=== PATIENT | female | born 1975 | race Caucasian/White ===

== ENCOUNTER 2021-04-04 18:19 | Emergency (ER) | payer MEDICAID ==
[~2021-04-04] VITALS: Ht 165.1 cm; Wt 61.2 kg
[2021-04-04 18:31] VITALS: BP_SYST 108
--- NOTE | 2021-04-04 19:02 | NUR ---
Patient to ER bed 05 to gown for evaluation. Side rails up.
--- NOTE | 2021-04-04 19:29 | NUR ---
[facility] Use of asceptic technique. Opsite placed over site. Blood return noted. Blood for lab drawn from site. Flushed with 10 cc of normal saline. No evidence of infiltration noted. Patient tolerated well.
--- NOTE | 2021-04-04 19:30 | NUR ---
# 22 gauge angiocath placed to right wrist. Use of asceptic technique. Opsite placed over site. Blood return noted. Blood for lab drawn from site. Flushed with 10 cc of normal saline. No evidence of infiltration noted. Patient tolerated well.
[2021-04-04 19:36] LABS: BILIRUBIN,URINE 1+ (NEGATIVE); BLOOD, URINE NEGATIVE (NEGATIVE); CLARITY/URINE CLOUDY (CLEAR); COLOR,URINE YELLOW (YELLOW); GLUCOSE,URINE NEGATIVE (NEGATIVE); KETONES,URINE TRACE (NEGATIVE); LEUKOCYTE ESTERASE ,URINE TRACE (NEGATIVE); NITRITE, URINE NEGATIVE (NEGATIVE); PROTEIN URINE 1+ (NEGATIVE); UROBILINOGEN,URINE 0.2 (0.2-1.0)
--- NOTE | 2021-04-04 19:37 | NUR ---
Pt awake, a/o x 3. Pt c/o abdominal pain RLQ 10/27, pt states she has been having abdominal pain since Sunday. Pt denies any n/v or other symptoms. Pt states she has been taking Ibuprofen since Sunday for the pain. Pt states the Ibuprofen has been helping for pain. VS, WNL.
[2021-04-04 19:41] LABS: BASOPHILS % (AUTO) 0.4 % (0.0-2.0); EOSINOPHILS # (AUTO) 0.2 K/uL (0.0-0.4); EOSINOPHILS % (AUTO) 1.5 % (0.0-4.0); HEMATOCRIT 33.2 % (36-48); HEMOGLOBIN 10.9 g/dL (12.0-16.0); LYMPHOCYTES # (AUTO) 1.9 K/uL (1.0-5.5); LYMPHOCYTES % (AUTO) 14.3 % (20.5-51.5); MEAN CORPUSCULAR HEMOGLOBIN 31 pg (27-31); MEAN CORPUSCULAR HGB CONC 33 % (32-36); MEAN CORPUSCULAR VOLUME 95 fL (79.0-98.0); MONOCYTES # (AUTO) 1.1 K/uL (0.0-1.0); MONOCYTES % (AUTO) 8.2 % (1.7-9.3); NEUTROPHILS # (AUTO) 10.2 K/uL (1.8-7.7); NEUTROPHILS % (AUTO) 75.6 % (40.0-70.0); PLATELET COUNT (AUTO) 304 K/uL (130-430); RED BLOOD CELL COUNT(AUTO) 3.52 MIL/uL (4.2-6.2); RED CELL DISTRIBUTION WIDTH 12.9 % (9.0-15.0); WHITE BLOOD COUNT (AUTO) 13.5 K/uL (4.8-10.8)
[2021-04-04 19:55] LABS: CALCIUM 8.6 mg/dL (8.4-11.0); CREATININE 0.75 mg/dL (0.55-1.30); POTASSIUM 3.8 mmol/L (3.5-5.1)
[2021-04-04 20:01] LABS: ALBUMIN 3.1 g/dL (3.4-4.8); TOTAL BILIRUBIN 0.2 mg/dL (0.0-1.0)
--- NOTE | 2021-04-04 20:21 | NUR ---
Dr. Langley at the bedside evaluating pt.
[2021-04-04 20:28] LABS: BACTERIA,URINE FEW /HPF (None Seen); RBC,URINE 0-3 /HPF (0-3)
[2021-04-04 20:29] LABS: MUCUS,URINE 3+ /LPF (None Seen)
[2021-04-04 21:07] LABS: BARBITURATE, URINE NEGATIVE (NEG <=200)
[2021-04-04 21:08] LABS: BENZODIAZEPINE, URINE NEGATIVE (NEG <=150); CANNABINOID, URINE POSITIVE (NEG <=50); COCAINE, URINE NEGATIVE (NEG <=150); METHAMPHETAMINES SCREEN,URINE POSITIVE (NEG <=500); OPIATE, URINE POSITIVE (NEG <=100); PHENCYCLIDINE SCREEN,URINE NEGATIVE (NEG <=25); UR TRICYCLIC ANTIDEPRESSANTS NEGATIVE (NEG <=300); URINE AMPHETAMINE POSITIVE (NEG <=500); URINE METHADONE NEGATIVE (NEG <=200); URINE OXYCODONE SCREEN NEGATIVE (NEG <=100); URINE PROPOXYPHENE SCREEN NEGATIVE (NEG <=300)
--- NOTE | 2021-04-04 21:55 | NUR ---
Pt to renal US via WC with tech.
--- NOTE | 2021-04-04 22:19 | NUR ---
Pt back to room 5, settled back to [facility].
[2021-04-04 22:20] VITALS: BP_SYST 115
[2021-04-05] MEDS ORDERED: DOCU-144 PO ×3 (00:10→00:17)
[2021-04-05] MEDS ORDERED: POLY17PO4 PO ×3 (00:10→00:17)
--- NOTE | 2021-04-05 00:30 | NUR ---
Patient given written and verbal discharge instructions and verbalizes understanding. ER MD discussed with patient the results and treatment provided. Patient in stable condition. ID arm band removed. IV catheter removed intact and dressing applied, no active bleeding. Rx given. Patient educated on pain management and to follow up with PMD. Pain Scale 2/10. Opportunity for questions provided and answered. Medication side effect fact sheet provided.
== END 2021-04-05 00:30 | disposition home or self-care (01) ==
LOC: SED 18:19
DX: K59.00 Constipation, unspecified (principal); F12.90 Cannabis use, unspecified, uncomplicated; Z79.899 Other long term (current) drug therapy
CPT/HCPCS: 36415; 74018; 76830-TC; 76857; 80053; 80307; 81000; 85025; 87086; 99285

== ENCOUNTER 2021-04-12 04:46 | Inpatient (IN) | payer MEDICAID, SELFPAY ==
[~2021-04-12] VITALS: Ht 165.1 cm; Wt 68.5 kg
[~2021-04-12 04:46] MED LIST: DOCU-144 PO; POLY17PO4 PO
[2021-04-12 04:55] VITALS: BP_SYST 131
--- NOTE | 2021-04-12 04:55 | NUR ---
Placed in room 6 . Placed on quality assurance monitor chassis, blood pressure machine and pulse oximeter. To gown for exam. Side rails up. Report given to Gertrude WHITEHEAD.
--- NOTE | 2021-04-12 04:56 | NUR ---
Came in ER ambulatory from home this 45 year old female, aaox4, breathing spontaneously at room air, not in distress noted. With chief complaints of SOB, fever/ chills, cough since last, history of chronic constipation, ovarian cyst, No known other medical history. vital signs stable
--- NOTE | 2021-04-12 05:13 | NUR ---
Seen and examined by Dr. Dawson, rectal exsamination done, occult blood positive
[2021-04-12] MEDS ORDERED: ONDANSETRON HCL 4 MG/2 ML VIAL IVP ONE (05:15)
[2021-04-12] MEDS ORDERED: KETOROLAC TROMETHAMINE 30 MG VIAL IVP ONE (05:15)
[2021-04-12] MEDS ORDERED: NACL 0.9% 1,000 ML IV ONE (05:15)
--- NOTE | 2021-04-12 05:20 | NUR ---
# 20 gauge angiocath placed to left forearm. Use of asceptic technique. Opsite placed over site. Blood return noted. Blood for lab drawn from site. Flushed with 10 cc of normal saline. No evidence of infiltration noted. Patient tolerated well.
--- NOTE | 2021-04-12 05:37 | NUR ---
Medications given as ordered, health teaching provided and verbalized understanding
[2021-04-12 05:46] LABS: BASOPHILS % (AUTO) 0.2 % (0.0-2.0); EOSINOPHILS # (AUTO) 0.2 K/uL (0.0-0.4); EOSINOPHILS % (AUTO) 0.8 % (0.0-4.0); HEMATOCRIT 34.3 % (36-48); HEMOGLOBIN 11.4 g/dL (12.0-16.0); LYMPHOCYTES # (AUTO) 1.5 K/uL (1.0-5.5); LYMPHOCYTES % (AUTO) 6.1 % (20.5-51.5); MEAN CORPUSCULAR HEMOGLOBIN 31 pg (27-31); MEAN CORPUSCULAR HGB CONC 33 % (32-36); MEAN CORPUSCULAR VOLUME 92 fL (79.0-98.0); MONOCYTES # (AUTO) 1.3 K/uL (0.0-1.0); MONOCYTES % (AUTO) 5.5 % (1.7-9.3); NEUTROPHILS # (AUTO) 21.3 K/uL (1.8-7.7); NEUTROPHILS % (AUTO) 87.4 % (40.0-70.0); PLATELET COUNT (AUTO) 477 K/uL (130-430); RED BLOOD CELL COUNT(AUTO) 3.73 MIL/uL (4.2-6.2); RED CELL DISTRIBUTION WIDTH 13.8 % (9.0-15.0); WHITE BLOOD COUNT (AUTO) 24.4 K/uL (4.8-10.8)
[2021-04-12 05:48] LABS: CALCIUM 8.6 mg/dL (8.4-11.0); CREATININE 0.82 mg/dL (0.55-1.30); POTASSIUM 3.6 mmol/L (3.5-5.1)
[2021-04-12 05:55] LABS: ALBUMIN 2.5 g/dL (3.4-4.8); TOTAL BILIRUBIN 0.1 mg/dL (0.0-1.0)
--- NOTE | 2021-04-12 06:47 | NUR ---
Patient transported to radiology (ct scan) via wheelchair in stable condition, accompanied by lead technician.
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
--- NOTE | 2021-04-12 07:05 | NUR ---
REPORT RECEIVED FROM CHARLEY LEDESMA FOR CONTINUING CARE. PT IS RESTING IN BED, DENIES PAIN AT THIS TIME. AAOX4.
--- NOTE | 2021-04-12 07:40 | NUR ---
SIGNIFICANT OTHER GIVEN STATUS UPDATE IN ER LOBBY
[2021-04-12 08:11] LABS: BILIRUBIN,URINE NEGATIVE (NEGATIVE); BLOOD, URINE NEGATIVE (NEGATIVE); COLOR,URINE YELLOW (YELLOW); GLUCOSE,URINE NEGATIVE (NEGATIVE); KETONES,URINE NEGATIVE (NEGATIVE); LEUKOCYTE ESTERASE ,URINE 3+ (NEGATIVE); NITRITE, URINE NEGATIVE (NEGATIVE); PH,URINE 6.5 (5.0-8.0); PROTEIN URINE NEGATIVE (NEGATIVE); UROBILINOGEN,URINE 0.2 (0.2-1.0)
[2021-04-12 08:15] LABS: CLARITY/URINE SLIGHTLY HAZY (CLEAR)
[2021-04-12 08:36] LABS: BACTERIA,URINE MODERATE /HPF (None Seen); RBC,URINE 0-3 /HPF (0-3)
--- NOTE | 2021-04-12 11:03 | NUR ---
ULTRASOUND AT THE BEDSIDE
[2021-04-12] MEDS ORDERED: PIPERACILLIN/TAZO 3.375 GM in NS 50 ML IV ONE (11:30)
[2021-04-12] MEDS ORDERED: MORPHINE 2 MG/ML INJ. SYRINGE IVP ONE (11:30)
[2021-04-12] MEDS ORDERED: PIPERACILLIN/TAZOBACTAM 3.375 GM/VIAL (ZOSYN) IV ONE (11:42)
--- NOTE | 2021-04-12 11:56 | NUR ---
LAB AT THE BEDSIDE FOR BLOOD DRAW
--- NOTE | 2021-04-12 12:02 | NUR ---
Patient transported to radiology via WC, accompanied by STAFF.
--- NOTE | 2021-04-12 15:52 | NUR ---
Patient will be admitted to care of DR. ADAM. Admitted to MS unit. Will go to a room when available. Belongings list completed. Complete and up to date summary report printed. SBAR report to be given at bedside with opportunity for questions.
--- NOTE | 2021-04-12 16:12 | NUR ---
DR. MCGUIRE AT THE BEDSIDE WITH PT
--- NOTE | 2021-04-12 17:35 | NUR ---
TRANSPORT TO OR WITH OR STAFF VIA [facility]
[2021-04-12] MEDS ORDERED: CEFAZOLIN 2 GM IVPB PREMIX 50 ML IV ONE (17:37)
[2021-04-12] MEDS ORDERED: DEXAMETHASONE SOD PHOSPHATE 4 MG/ML VIAL IVP ONE (17:37)
[2021-04-12] MEDS ORDERED: HYDROmorphone 2 MG/ML VIAL IVP ONE (17:37)
[2021-04-12] MEDS ORDERED: MIDAZOLAM HCL 5 MG/ML VIAL (VERSED) IV ONE (17:37)
[2021-04-12] MEDS ORDERED: fentaNYL CITRATE 250 MCG/5 ML AMP IV ONE (17:37)
[2021-04-12] MEDS ORDERED: LR 1,000 ML IV.SOLN IV ONE (17:37)
[2021-04-12] MEDS ORDERED: GLYCOPYRROLATE 0.2 MG/ML VIAL IJ ONE (17:37)
[2021-04-12] MEDS ORDERED: SEVOFLURANE 15 MIN GAS INH ONE (17:37)
[2021-04-12] MEDS ORDERED: SUCCINYLCHOLINE CHLORIDE 20 MG/ML(QUELICIN) IVP ONE (17:37)
[2021-04-12] MEDS ORDERED: LIDOCAINE/EPI 1% 1:100000 20 ML VIAL INJ ONE (17:37)
[2021-04-12] MEDS ORDERED: WATER FOR IRRIGATION,STERILE 1,000 ML IRRIG.SOLN IR ONE (17:37)
[2021-04-12] MEDS ORDERED: NS 1000 ML IV.SOLN IV ONE (17:37)
[2021-04-12] MEDS ORDERED: NEOSTIGMINE METHYLSULFATE 1 MG/ML, 10 ML VIAL IVP ONE (17:37)
[2021-04-12] MEDS ORDERED: PROPOFOL 200MG/ 20ML VIAL (DIPRIVAN) IV ONE (17:37)
[2021-04-12] MEDS ORDERED: METOCLOPRAMIDE HCL 10 MG/2 ML VIAL IVP ONE (17:37)
[2021-04-12] MEDS ORDERED: HYDROmorphone 1 MG/ML INJ. CARTRIDGE IVP PRN (18:15)
[2021-04-12] MEDS ORDERED: HYDROmorphone 2 MG/ML VIAL IVP PRN ×2 (18:15)
[2021-04-12] MEDS ORDERED: MEPERIDINE HCL/PF 25 MG/ML DISP.SYRIN IVP PRN (18:15)
[2021-04-12] MEDS ORDERED: LR 1,000 ML IV SCH (18:15)
[2021-04-12] MEDS ORDERED: ONDANSETRON HCL 4 MG/2 ML VIAL IVP PRN (19:00)
[2021-04-12] MEDS ORDERED: LORazepam 2 MG/ML VIAL IVP PRN (19:00)
[2021-04-12] MEDS ORDERED: NALOXONE HCL 0.4 MG/ML AMP (NARCAN) IVP PRN ×3 (19:00)
[2021-04-12] MEDS ORDERED: ACETAMINOPHEN 325 MG TABLET PO PRN (19:00)
--- NOTE | 2021-04-12 20:15 | NUR ---
OPENING NOTE PATIENT TRANSFERRED HERE FROM (OR) S/P LAPAROSCOPIC APPENDECTOMY PATIENT IS AROUSAL TO NAME BREATHING ROOM AIR NO SIGNS OF RESPIRATORY DISTRESS HAS PAIN WILL ADMINISTER MORPHINE ORDERED. PATIENTS POST OP VITALS ASSESSED AND CHARTED. IV ACCESS PATENT AND INTACT. BED IS LOW AND CALL LIGHT IN REACH.
[2021-04-12] MEDS: DOCUSATE SODIUM 100 MG CAPSULE PO SCH (21:00)
--- NOTE | 2021-04-12 21:00 | NUR ---
PATIENTS BELONGINGS CHARTED ILLICIT DRUG PARAPHERNALIA REMOVED GIVEN TO SECURITY 2 LARGE FOLDING KNIFES, MULTI TOOL, 1 BOX CUTER; 2 LIGHTS AND A TORCH, CRACK PIPE, HOT RAMIREZ AND NEEDLES FILLED WITH UNKNOWN SUBSTANCE ALL HANDED TO SADE.
[2021-04-12] MEDS: D5/0.45 NS 1,000 ML IV SCH (22:10)
[2021-04-12] MEDS: MORPHINE 2 MG/ML INJ. SYRINGE IVP PRN (22:24)
[2021-04-12 22:26] VITALS: BP_SYST 118
[2021-04-13] MEDS ORDERED: PIPERACILLIN/TAZO 3.375/DEX-IS 50 ML IV SCH
--- NOTE | 2021-04-13 | NUR ---
PATIENT IS RESTING IN BED AWAKE RESUMED TO CLEAR LIQUID DIET TOLERATING WELL HOB ELEVATED. SCD ON BILATERAL LEGS. BED IS LOW AND CALL LIGHT IN REACH.
[2021-04-13 00:57] LABS: BARBITURATE, URINE NEGATIVE (NEG <=200); BENZODIAZEPINE, URINE NEGATIVE (NEG <=150); CANNABINOID, URINE POSITIVE (NEG <=50); COCAINE, URINE NEGATIVE (NEG <=150); METHAMPHETAMINES SCREEN,URINE POSITIVE (NEG <=500); URINE AMPHETAMINE POSITIVE (NEG <=500); URINE METHADONE NEGATIVE (NEG <=200)
[2021-04-13 00:58] LABS: OPIATE, URINE POSITIVE (NEG <=100); PHENCYCLIDINE SCREEN,URINE NEGATIVE (NEG <=25); UR TRICYCLIC ANTIDEPRESSANTS NEGATIVE (NEG <=300); URINE OXYCODONE SCREEN NEGATIVE (NEG <=100); URINE PROPOXYPHENE SCREEN NEGATIVE (NEG <=300)
[2021-04-13 01:08] VITALS: BP_SYST 126
--- NOTE | 2021-04-13 01:58 | NUR ---
SECOND CALLED FOR BERNICE GABRIEL I SPOKE WITH CHACORTA LAN
--- NOTE | 2021-04-13 02:16 | NUR ---
MORNING CONSULT CORNING CONSULT FOR DR. JOAQUIN KEY I SPOKE WITH GILBERTO LAN REASON FOR CONSULT: ABDOMINAL ABSCESS REQUESTING CONSULT: DR. ТАТЬЯНА [employer] PHONE NUMBER: [phone]
[2021-04-13] MEDS: MORPHINE 4 MG INJ. 4 MG/ML VIAL IVP PRN ×3 (02:27→23:47)
--- NOTE | 2021-04-13 02:28 | NUR ---
PATIENT STATED SHE IS "KICKING Addendum: 04/13/21 at 0230 by Mckenna Moura RN PATIENT STATED SHE IS "KICKING" AND NEEDS HER HEROIN ALSO STATED PAIN IS AT A 10 ON A SCALE OF 0 TO 10 WITH 10 BEING MOST PAIN. MORPHINE GIVEN [address] CONTA[address] MO FOR PAIN MEDICATION TO BE INCREASED NOT EFFECTIVE FOR PATIENT HER TOLERANCE TO DRUGS IS HIGH.
--- NOTE | 2021-04-13 02:33 | NUR ---
THIRD CALLED FOR DR MO, I SPOKE WITH DILLON LAN
--- NOTE | 2021-04-13 04:00 | NUR ---
PATIENT IS ASLEEP COMFORTABLE SHE STATED SHE IS NOT IN ANY PAIN AT THIS TIME. BED IS LOW AND CALL LIGHT IS IN REACH.
[2021-04-13] MEDS ORDERED: PIPERACILLIN/TAZOBACTAM 3.375 GM/VIAL (ZOSYN) IV ONE (04:10)
[2021-04-13] MEDS: PIPERACILLIN/TAZO 3.375/DEX-IS 50 ML IV SCH ×4 (04:15→23:35)
[2021-04-13 04:37] VITALS: BP_SYST 126
[2021-04-13] MEDS ORDERED: MORPHINE 2 MG/ML INJ. SYRINGE IVP PRN (04:45)
[2021-04-13] MEDS: D5/0.45 NS 1,000 ML IV SCH ×2 (04:46→14:50)
--- NOTE | 2021-04-13 06:21 | NUR ---
CLOSING NOTE PATIENT IS ASLEEP CALM COOPERATIVE BREATHING ROOM AIR NO RESPIRATORY DISTRESS OR HAS PAIN OF 7 ON A SCALE OF 0-10 WITH 10 BEING MOST PAIN MORPHINE WILL BE GIVEN 4 MG PRN TO BE REASSESSED IN 60 MINUTES. IV SITE PATENT AND INTACT IN LEFT WRIST. BED IS LOW AND CALL LIGHT IN REACH.
[2021-04-13 06:55] LABS: BASOPHILS % (AUTO) 0.1 % (0.0-2.0); LYMPHOCYTES # (AUTO) 0.9 K/uL (1.0-5.5); LYMPHOCYTES % (AUTO) 2.6 % (20.5-51.5); MEAN CORPUSCULAR HEMOGLOBIN 31 pg (27-31); MEAN CORPUSCULAR HGB CONC 33 % (32-36); MEAN CORPUSCULAR VOLUME 92 fL (79.0-98.0); MONOCYTES # (AUTO) 0.5 K/uL (0.0-1.0); MONOCYTES % (AUTO) 1.6 % (1.7-9.3); NEUTROPHILS # (AUTO) 32.1 K/uL (1.8-7.7); NEUTROPHILS % (AUTO) 95.7 % (40.0-70.0); PLATELET COUNT (AUTO) 485 K/uL (130-430); RED BLOOD CELL COUNT(AUTO) 3.58 MIL/uL (4.2-6.2); RED CELL DISTRIBUTION WIDTH 13.8 % (9.0-15.0)
[2021-04-13 06:56] LABS: CALCIUM 8.2 mg/dL (8.4-11.0); CREATININE 0.6 mg/dL (0.55-1.30); PHOSPHORUS 3.6 mg/dL (2.7-4.5); POTASSIUM 3.8 mmol/L (3.5-5.1); TOTAL BILIRUBIN 0.1 mg/dL (0.0-1.0)
[2021-04-13 08:11] LABS: ERYTHROCYTE SEDIMENTATION RATE 95 MM/HR (0-20)
[2021-04-13 08:22] LABS: WHITE BLOOD COUNT (AUTO) 33.5 K/uL (4.8-10.8)
[2021-04-13] MEDS: POLYETHYLENE GLYCOL 3350, 17 GM/ POWD.PACK PO SCH (09:20)
[2021-04-13] MEDS: HYDROcodone/ACETAMIN 10-325 MG TAB PO PRN ×2 (09:20→17:29)
[2021-04-13] MEDS: DOCUSATE SODIUM 100 MG CAPSULE PO SCH ×2 (09:23→21:15)
--- NOTE | 2021-04-13 09:51 | NUR ---
MULTIPLE COMPLAINTS WHEN FIRST SEEN: 1/ GOT PAIN MEDS LATE, " SOMUCH IN PAIN" 2/ NO TV CONTROL, NO CALL LIGHT GIVEN 3/ " FOOD SUCKS" NEEDY YOUNG WOMAN, CLEAR LIQUID OFFERED. EXPLAINED NORCO 10/325 PO , GIVEN ON TOP OF MSO4 , IVP, WILL BE GIVEN NEEDED APPEARED NOT MAKE ANY EFFORT TO US IS, DESPITE THE FACT THAT AUTHOR EXPLAINED HOW IMPORTANT FOR POST OP., DID NOT DO IT.
[2021-04-13] MEDS: MORPHINE 2 MG/ML INJ. SYRINGE IVP PRN ×3 (10:28→18:36)
--- NOTE | 2021-04-13 10:30 | NUR ---
still complained of abdominal pain, mso4 2mg ivp given now
[2021-04-13 11:34] LABS: C-REACTIVE PROTEIN QUANT 36.1 mg/dL (0-0.5)
[2021-04-13 12:40] VITALS: BP_SYST 120
[2021-04-13 16:21] VITALS: BP_SYST 132
--- NOTE | 2021-04-13 18:38 | NUR ---
ASKED TO SEE WHETHER HER DIET CAN BE ADVANCED, DECLINED. CONTINUES TO ASK FOR MORPHINE, 2MG IVP EVERY 4HRS, ALTERNATED WITH NORCO, " SO MUCH IN PAIN , SHE CLAIMED. LAST MORPHINE 2MG IVP AT 1814, SLEEPY MOST OF THE SHIFT, WOKE UP ONLY TO ASK FOR PAIN MEDS.
--- NOTE | 2021-04-13 19:25 | NUR ---
Opening note Received patient awake, resting in bed. No distress and nonlabored breathing on room air. Presently reports pain is controlled she adds that she received pain med one hour ago. Meal tray at bed side and she states that she wants to keep it, still working on finishing. IVF infusing well via left wrist. SCD's on, incision site dressing is CDI. Bed is locked in lowest position, side rails up 2x, call light w/in. Updated board.
[2021-04-13 20:00] VITALS: BP_SYST 117
--- NOTE | 2021-04-13 21:15 | NUR ---
Med Scheduled medication given
--- NOTE | 2021-04-13 23:47 | NUR ---
Pain med Patient reports pain is severe, 02/26. Administered Morphine for severe pain, delisa. Addendum: 04/14/21 at 0513 by Neeru Spicer RN Reviewed side effects; she verbalized understanding
--- NOTE | 2021-04-14 02:27 | NUR ---
sleeping Patient resting w/ eyes closed. No distress and nonlabored breathing on RA. IVF infusing well, no sign of infiltration noted. Call light w/in reach, wctm.
[2021-04-14 03:06] VITALS: BP_SYST 113
[2021-04-14] MEDS: D5/0.45 NS 1,000 ML IV SCH ×3 (04:48→23:23)
[2021-04-14] MEDS: PIPERACILLIN/TAZO 3.375/DEX-IS 50 ML IV SCH ×4 (04:49→23:21)
--- NOTE | 2021-04-14 04:49 | NUR ---
IVF, antibiotic Patient resting in bed w/eyes closed, momentarily awakened for meds. Hung new bag of D5 1/2 NS and infusing well, no infiltration noted. Administered due antibiotic; infusing well, tolerating. She has no further needs.
[2021-04-14] MEDS: HYDROcodone/ACETAMIN 5-325 MG TAB (NORCO/ VICODIN) PO PRN (06:35)
--- NOTE | 2021-04-14 06:35 | NUR ---
[place]/Vicodin Reporting moderate pain and [place]/Vicodin given; reviewed side effects. She is willing to take med d/t she wants to be more alert
--- NOTE | 2021-04-14 07:10 | NUR ---
closing note endorsed report, stable
[2021-04-14 07:12] LABS: HEMOGLOBIN 10.2 g/dL (12.0-16.0); MEAN CORPUSCULAR HEMOGLOBIN 31 pg (27-31); MEAN CORPUSCULAR HGB CONC 33 % (32-36); MEAN CORPUSCULAR VOLUME 94 fL (79.0-98.0); PLATELET COUNT (AUTO) 419 K/uL (130-430); RED BLOOD CELL COUNT(AUTO) 3.32 MIL/uL (4.2-6.2); RED CELL DISTRIBUTION WIDTH 13.8 % (9.0-15.0); WHITE BLOOD COUNT (AUTO) 21.5 K/uL (4.8-10.8)
[2021-04-14 07:35] LABS: CALCIUM 8.5 mg/dL (8.4-11.0); CREATININE 0.7 mg/dL (0.55-1.30); POTASSIUM 3.8 mmol/L (3.5-5.1)
[2021-04-14 08:00] VITALS: BP_SYST 114
[2021-04-14] MEDS: POLYETHYLENE GLYCOL 3350, 17 GM/ POWD.PACK PO SCH (09:05)
[2021-04-14] MEDS: DOCUSATE SODIUM 100 MG CAPSULE PO SCH ×2 (09:05→23:22)
[2021-04-14 09:16] LABS: C-REACTIVE PROTEIN QUANT 25.7 mg/dL (0-0.5)
--- NOTE | 2021-04-14 10:23 | NUR ---
0745 first seen , sitting in chair, soundly asleep 0930 wide awake, did not even ask for pain meds. now got out of room, and starts ambulatiing in the hallwy
[2021-04-14 10:44] LABS: ERYTHROCYTE SEDIMENTATION RATE 107 MM/HR (0-20)
--- NOTE | 2021-04-14 11:11 | NUR ---
seen by the surgeon, dr OM, awaitng bm, stays one more day. per surgeon's order, diet not advanced to soft yet, until bm happens
[2021-04-14 11:15] LABS: BAND % (MANUAL) 5 % (0-6); LYMPHOCYTES % (MANUAL) 6 % (20-46); MONOCYTES % (MANUAL) 2 % (0-11)
[2021-04-14 11:16] LABS: BASOPHILS % (MANUAL) 0 % (0-2); EOSINOPHILS % (MANUAL) 0 % (0-7)
[2021-04-14 12:23] VITALS: BP_SYST 94
[2021-04-14 16:43] VITALS: BP_SYST 112
[2021-04-14] MEDS: HYDROcodone/ACETAMIN 10-325 MG TAB PO PRN ×2 (16:48→23:22)
[2021-04-14] MEDS ORDERED: SODIUM PHOSPHATE,MONO-DIBASIC 133 ML ENEMA RC ONE (17:30)
--- NOTE | 2021-04-14 17:30 | NUR ---
until now no BM, despite the fact Miralax given this am. From surgery point of view , patient is cleared. Continues on clear liquid with ivf running as instructed. Abx Zosyn ivpb continues one more day per surgeon. asked for pain med x1 during the whole shift, NORCO 10/325mg po given.
[2021-04-14] MEDS ORDERED: BISACODYL 10 MG/SUPPOSITORY RC ONE ×2 (17:43→18:00)
--- NOTE | 2021-04-14 19:30 | NUR ---
OPENING NOTE RECEIVED REPORT FROM DAY RN. PATIENT IN BED WITH SIG. OTHER AT BEDSIDE. RESPIRATIONS EVEN AND UNLABORED ON RA. NO SIGNS OF DISTRESS NOTED. LEFT WRIST 20G IV PATENT AND INTACT RUNNING IVF. NO SIGNS OF INFILTRATION NOTED. LEFT SIRI DRAIN INTACT. BED IN LOWEST AND LOCKED POSITION. SAFETY PRECAUTIONS IN PLACE. WILL CONTINUE TO MONITOR.
[2021-04-14 20:00] VITALS: BP_SYST 111
--- NOTE | 2021-04-14 21:35 | NUR ---
PT AFTER HOURS SPOKE TO SIGNIFICANT OTHER ABOUT VISITING POLICY AND HOURS. PT STATES HE WAS GIVEN PERMISSION TO STAY THE NIGHT. PT STATES THAT HE HAS BEEN SLEEPING AT BEDSIDE WITH PATIENT SINCE ADMISSION.
[2021-04-14] MEDS: PSYLLIUM HUSK 1 PKT PACKET PO SCH (23:22)
[2021-04-15 00:30] VITALS: BP_SYST 113
--- NOTE | 2021-04-15 02:15 | NUR ---
DR. NUÑEZ AT BEDSIDE PATIENT SLEEPING. VIEWED SIRI DRAIN AND OUTPUT. ORDERED CULTURE FOR SIRI DRAIN FLUID.
[2021-04-15] MEDS: PIPERACILLIN/TAZO 3.375/DEX-IS 50 ML IV SCH ×3 (05:36→16:32)
[2021-04-15] MEDS: D5/0.45 NS 1,000 ML IV SCH ×2 (06:02→14:27)
[2021-04-15 06:41] LABS: BASOPHILS % (AUTO) 0.2 % (0.0-2.0); EOSINOPHILS # (AUTO) 0.2 K/uL (0.0-0.4); EOSINOPHILS % (AUTO) 1.5 % (0.0-4.0); HEMATOCRIT 30.4 % (36-48); HEMOGLOBIN 10.1 g/dL (12.0-16.0); LYMPHOCYTES # (AUTO) 1.9 K/uL (1.0-5.5); LYMPHOCYTES % (AUTO) 14.3 % (20.5-51.5); MEAN CORPUSCULAR HEMOGLOBIN 31 pg (27-31); MEAN CORPUSCULAR HGB CONC 33 % (32-36); MEAN CORPUSCULAR VOLUME 93 fL (79.0-98.0); MONOCYTES # (AUTO) 0.7 K/uL (0.0-1.0); MONOCYTES % (AUTO) 5.1 % (1.7-9.3); NEUTROPHILS # (AUTO) 10.3 K/uL (1.8-7.7); NEUTROPHILS % (AUTO) 78.9 % (40.0-70.0); PLATELET COUNT (AUTO) 464 K/uL (130-430); RED BLOOD CELL COUNT(AUTO) 3.26 MIL/uL (4.2-6.2); RED CELL DISTRIBUTION WIDTH 14.3 % (9.0-15.0)
[2021-04-15 08:00] VITALS: BP_SYST 113
[2021-04-15] MEDS: PSYLLIUM HUSK 1 PKT PACKET PO SCH ×3 (08:39→22:04)
[2021-04-15] MEDS: POLYETHYLENE GLYCOL 3350, 17 GM/ POWD.PACK PO SCH (08:39)
[2021-04-15] MEDS: DOCUSATE SODIUM 100 MG CAPSULE PO SCH ×2 (08:39→22:04)
[2021-04-15 09:08] LABS: ALBUMIN 1.9 g/dL (3.4-4.8); CALCIUM 8.5 mg/dL (8.4-11.0); CREATININE 0.66 mg/dL (0.55-1.30); POTASSIUM 3.6 mmol/L (3.5-5.1); TOTAL BILIRUBIN 0.2 mg/dL (0.0-1.0)
[2021-04-15 09:19] LABS: C-REACTIVE PROTEIN QUANT 22.6 mg/dL (0-0.5)
--- NOTE | 2021-04-15 10:11 | NUR ---
Nutrition Update Nick Scale 17 noted. Pt admitted for perforated abscess. Diet: clear liquid BMI: 25.1 kg/m2 RD to follow per nutrition care standards.
--- NOTE | 2021-04-15 10:20 | NUR ---
Note Received call from lab - pt positive with MRSA. control room supervisor notified. Dr Justin Valdez to be called.
--- NOTE | 2021-04-15 11:30 | NUR ---
Note Pt has been ambulatory in room and to restroom independently with IV pole. Pt sits up in bedside recliner during shift. Pt's IV in left wrist intact and patent infusing IVF's we.. Left sided SIRI drain intact and draining. Pt ambulatory in hallways with steady gait. Call light within reach.
[2021-04-15 11:47] LABS: ERYTHROCYTE SEDIMENTATION RATE 107 MM/HR (0-20)
[2021-04-15 12:00] VITALS: BP_SYST 112
[2021-04-15] MEDS: HYDROcodone/ACETAMIN 5-325 MG TAB (NORCO/ VICODIN) PO PRN (16:40)
[2021-04-15 16:45] VITALS: BP_SYST 113
--- NOTE | 2021-04-15 18:40 | NUR ---
Note Pt has been sitting up in bedside recliner all day. Pt was encouraged to use IS q1' 10X while awake. Pt was checked on q1' and PRN all shift for needs and care. Pt's significant other has been at bedside most of shift. Pt encouraged to ambulate in hallway frequently, to help pass gas, which is causing abdominal discomfort. Pt's bed in low position all shift. Pt's dressing on left lower quadrant CDI all shift with SIRI drain. Pt and significant other were educated on how to empty SIRI drain and record. Call light within reach. No needs noted at this time.
[2021-04-15] MEDS ORDERED: LEVO500T89 PO (19:18)
[2021-04-15] MEDS ORDERED: HYDR-3919 PO (19:18)
[2021-04-15] MEDS ORDERED: DOCU-144 PO (19:18)
[2021-04-15] MEDS ORDERED: METR500T PO (19:18)
[2021-04-15] MEDS ORDERED: POLY17PO4 PO (19:18)
--- NOTE | 2021-04-15 22:20 | NUR ---
D/C Patient Patient given medication reconciliation form and D/C instructions. Exit Care provided. Patient verbalized understanding. MD discussed with patient the results and treatment provided. Ambulatory with steady gait for discharge to home. Patient in stable condition, ID band removed. IV catheter removed, intact and dressing applied, no active bleeding. SIRI secured intact dressing dry. Rx of given. Patient educated on pain management. All belongings sent with patient.
== END 2021-04-15 22:20 | disposition home or self-care (01) | DRG 233 ==
LOC: SED 04:46 → SMU 15:49
PROVIDERS: ADMIT Preventive Medicine Preventive Medicine/Occupational Environmental Medicine; ATTEND Preventive Medicine Preventive Medicine/Occupational Environmental Medicine
PROC: 0DTJ4ZZ Resection of Appendix, Percutaneous Endoscopic Approach (ICD-10-PCS; principal; 2021-04-12 17:00)
DX: K35.33 Acute appendicitis with perforation, localized peritonitis, and gangrene, with abscess (principal); E43 Unspecified severe protein-calorie malnutrition; D69.6 Thrombocytopenia, unspecified; E87.1 Hypo-osmolality and hyponatremia; E88.09 Other disorders of plasma-protein metabolism, not elsewhere classified; L02.211 Cutaneous abscess of abdominal wall; D64.9 Anemia, unspecified; E83.52 Hypercalcemia; F17.210 Nicotine dependence, cigarettes, uncomplicated; K59.00 Constipation, unspecified; K66.0 Peritoneal adhesions (postprocedural) (postinfection); F11.10 Opioid abuse, uncomplicated; F12.10 Cannabis abuse, uncomplicated; Z20.822 Contact with and (suspected) exposure to COVID-19; F15.10 Other stimulant abuse, uncomplicated; R73.9 Hyperglycemia, unspecified; N39.0 Urinary tract infection, site not specified; Z90.721 Acquired absence of ovaries, unilateral; Z79.899 Other long term (current) drug therapy; R65.10 Systemic inflammatory response syndrome (SIRS) of non-infectious origin without acute organ dysfunction
CPT/HCPCS: 36415; 71045; 76376; 76856-TC; 80048; 80053; 80307; 81000; 83690; 83735; 84100; 85007; 85025; 85027; 85651-TC; 86140; 87040-TC; 87070-TC; 87081; 87086; 88304; 96361; 96365; 96375; 99285; C1727; J0330; J0690; J1100; J1170; J1885; J2250; J2270; J2405; J2543; J2704; J2710; J2765; J3010; J3490; J7030; J7120; Q9967

== ENCOUNTER 2021-09-02 23:04 | Emergency (ER) | payer MEDICAID, SELFPAY ==
[~2021-09-02] VITALS: Ht 165.1 cm; Wt 63.5 kg
[~2021-09-02 23:04] MED LIST changes: +HYDR-3919 PO; +LEVO500T90 PO; +METR500T PO
[2021-09-02 23:45] VITALS: BP_SYST 116
--- NOTE | 2021-09-03 | NUR ---
Patient came in to [facility] ER c/o of redness and itching on both sides of her face and her forehead for the past few days. Has not used any new hygienic products. No nausea, vomiting, throat tightening, shortness of breath, wheezing, abdominal pain or fever. Patient respiration even unlabored, ambultory with steady gait.
--- NOTE | 2021-09-03 06:13 | NUR ---
ER in triage examining patient.
[2021-09-03] MEDS ORDERED: NEOM28.36 TP (06:19)
--- NOTE | 2021-09-03 06:40 | NUR ---
Patient eloped from facility
--- NOTE | 2021-09-03 06:40 | NUR ---
ER aware that patient eloped
== END 2021-09-03 06:40 | disposition left against medical advice (07) ==
LOC: SED 23:04
DX: L30.9 Dermatitis, unspecified (principal); Z79.899 Other long term (current) drug therapy
CPT/HCPCS: 99282